=== PATIENT | male | born 1955 | race Caucasian/White ===

== ENCOUNTER 2019-02-27 10:45 | Inpatient (IN) | payer MEDICAID, MEDICARE ==
[~2019-02-27] VITALS: Ht 172.7 cm; Wt 55.8 kg
[~2019-02-27 10:45] MED LIST: ACET-2154 PO; ALBU18HF2 INH; AMLO10TA4 PO; ASCO500C16 PO; ASPI81TA31 PO; ATOR20TA PO; BLOO-360 IN; CARV6.25 PO; CHOL50004 PO; CLON0.1T14 PO; CYAN10009 PO; DARB25VI SQ; DEXT1CAP3 PO; DOCU-141 PO; FAMO-132 PO; FENO145T PO; FLUT1DIS28 INH; FOLI1TAB16 PO; GLIP5TAB3 PO; HYDR-4384 PO; HYDR25TA86 PO; INSU100V7 SQ; IPRA3AMP23 IH; MULT1TAB11 PO; NEBI10TA2 PO; OMEG1000 PO; TIOT18CA3 INH; ZINC220C8 PO; [UNRECOGNIZED DRUG - CODE] PO
[2019-02-27] MEDS ORDERED: IV NORMAL SALINE 500 ML BAG IV ONE (11:00)
[2019-02-27] MEDS ORDERED: CALC667C6 PO (11:09)
[2019-02-27] MEDS ORDERED: MIDO10TA PO (11:09)
[2019-02-27] MEDS ORDERED: FOLI0.4T2 PO (11:09)
[2019-02-27] MEDS ORDERED: NEOM1PAC2 TP (11:09)
[2019-02-27] MEDS ORDERED: CLON0.1T PO (11:09)
[2019-02-27] MEDS ORDERED: DOCU100C36 PO (11:09)
[2019-02-27] MEDS ORDERED: BENZ1TAB7 PO (11:09)
[2019-02-27] MEDS ORDERED: VIT1TABL46 PO (11:09)
[2019-02-27] MEDS ORDERED: LACT1CAP61 PO (11:09)
[2019-02-27] MEDS ORDERED: DIVA125C2 PO (11:09)
[2019-02-27] MEDS ORDERED: CLON0.5T12 PO (11:09)
[2019-02-27] MEDS ORDERED: TUBE1VIA ID (11:09)
[2019-02-27] MEDS ORDERED: VALB40CA PO (11:09)
[2019-02-27 11:12] LABS: BASOPHILS # (AUTO) 0.1 K/uL (0.0-8.0); BASOPHILS % (AUTO) 1.3 % (0.0-2.0); EOSINOPHILS # (AUTO) 0.2 K/uL (0.0-0.7); EOSINOPHILS % (AUTO) 2.7 % (0.0-7.0); HEMOGLOBIN 10.9 g/dL (12.5-16.3); LYMPHOCYTES # (AUTO) 1.6 K/uL (20.0-40.0); LYMPHOCYTES % (AUTO) 23.8 % (20.5-51.5); MEAN CORPUSCULAR HGB CONC 33 g/dL (32.5-36.3); MEAN CORPUSCULAR VOLUME 97.2 fL (73.0-96.2); MONOCYTES # (AUTO) 0.3 K/uL (2.0-10.0); MONOCYTES % (AUTO) 4.3 % (0.0-11.0); NEUTROPHILS # (AUTO) 4.5 K/uL (1.8-8.9); NEUTROPHILS % (AUTO) 67.9 % (38.5-71.5); PLATELET COUNT (AUTO) 246 K/uL (152-348); WHITE BLOOD COUNT (AUTO) 6.7 K/uL (3.6-10.2)
[2019-02-27 11:22] LABS: CREATININE 3.8 mg/dL (0.6-1.3); POTASSIUM 4.5 mmol/L (3.5-5.1)
[2019-02-27 11:38] LABS: BILIRUBIN,DIRECT 0.1 mg/dL (0.0-0.2); BILIRUBIN,TOTAL 0.2 mg/dL (0.2-1.0); TOTAL PROTEIN, SERUM 6.3 g/dL (6.4-8.2)
--- NOTE | 2019-02-27 12:18 | NUR ---
Patient is resting comfortably on gurney while actively moving both legs & left arm, respiration:easy, for transfer to 3rd floor telemetry floor 316 as soon as possible.
--- NOTE | 2019-02-27 12:50 | NUR ---
RECEIVED PATIENT FROM ER VIA [facility], WITH DIAGNOSIS OF RENAL FAILURE, PATIENT ALERT AND ORIENTED TO NAME, PATIENT IS CONFUSED. PATIENT HAS RIGHT SIDE HEMIPARESIS, RIGHT CONTRACTURES, A DIALYSIS PATIENT WITH CENTRAL LINE ON THE LEFT CHEST. IV ON THE LEFT FOREARM. MD AWARE OF PATIENT . BED IN LOW POSITION , SIDE RAILS UP WITH BED ALARM. WILL CONTINUE TREATMENT AND WILL CONTINUE TO MONITOR.
[2019-02-27 13:00] VITALS: BP 116/66
[2019-02-27 15:30] VITALS: BP 116/59
[2019-02-27] MEDS ORDERED: ONDANSETRON 4 MG/2 ML VIAL IV PRN (16:45)
[2019-02-27] MEDS ORDERED: CLONIDINE HCL 0.1 MG TABLET PO PRN (16:45)
[2019-02-27] MEDS ORDERED: ALBUTEROL SULFATE 1.25 MG/3 ML NEBU NEB PRN (16:45)
[2019-02-27] MEDS ORDERED: Medication Not On Formulary EA (Vit B Cmplx 3/Fa/Vit C/Biotin (Rena-Vite Rx Tablet) 1 EA PO SCH (17:00)
[2019-02-27] MEDS: DOCUSATE SODIUM 100 MG CAPSULE PO SCH (17:30)
[2019-02-27] MEDS: CALCIUM ACETATE 667 MG CAPSULE PO SCH (17:30)
[2019-02-27] MEDS: BENZTROPINE MESYLATE 1 MG TABLET PO SCH (17:30)
[2019-02-27] MEDS: DIVALPROEX SPRINKLE 125 MG CAP.SPRINK PO SCH (17:30)
[2019-02-27] MEDS: CLONAZEPAM 0.5 MG TABLET PO SCH (17:32)
--- NOTE | 2019-02-27 18:38 | NUR ---
PATIENT IN BED AWAKE AND ALERT, NO SOB NOTED AT THIS TIME, NO C/O PAIN AT THIS TIME, PROVIDE SAFETY AND COMFORT AT ALL TIMES. ECHOCARDIOGRAM DONE, WILL CONTINUE TREATMENT PLAN.
[2019-02-27] MEDS ORDERED: Z GUARD REMEDY PASTE 57 GM TUBE TOP PRN (18:45)
--- NOTE | 2019-02-27 19:20 | NUR ---
RECEIVED PT COMFORTABLY ON BED. PT SHOWS NO SIGNS OF ACUTE DISTRESS. PT IV INTACT. SAFETY AND COMFORT PROVIDED. WILL CONTINUE TO MONITOR.
[2019-02-27 19:27] VITALS: BP 137/78
[2019-02-27] MEDS: ACIDOPHILUS/BULGARICUS CHEW TAB PO SCH (20:48)
[2019-02-27] MEDS: HYDROCODONE/APAP 5-325MG TABLET PO PRN (20:48)
[2019-02-27] MEDS: Z GUARD REMEDY PASTE 57 GM TUBE TOP SCH (20:51)
[2019-02-27] MEDS ORDERED: Medication Not On Formulary EA (Valbenazine Tosylate (Ingrezza) 40 MG) PO SCH (21:00)
[2019-02-27 23:45] VITALS: BP 123/67
[2019-02-28] MEDS: CLONAZEPAM 0.5 MG TABLET PO SCH ×3 (00:45→17:26)
[2019-02-28 03:21] VITALS: BP 111/65
[2019-02-28 03:51] LABS: *BILIRUBIN,URIN NEGATIVE (NEGATIVE); *BLOOD, URINE 2+ (NEGATIVE); *CLARITY,URINE CLOUDY (CLEAR); *COLOR,URINE YELLOW (YELLOW); *KETONES,URINE NEGATIVE (NEGATIVE); *UROBILINOGEN,URINE 0.2 E.U./dl (NORMAL); LEUKOCYTE ESTERASE ,URINE 1+ (NEGATIVE); NITRITE, URINE NEGATIVE (NEGATIVE); UGLUCOSE NEGATIVE (NEGATIVE)
[2019-02-28 04:31] LABS: BACTERIA,URINE MANY /HPF (NONE SEEN); SQUAMOUS EPITHELIAL CELL,UR MODERATE /HPF (NONE SEEN)
[2019-02-28 05:58] LABS: BASOPHILS % (AUTO) 0.8 % (0.0-2.0); EOSINOPHILS # (AUTO) 0.2 K/uL (0.0-0.7); EOSINOPHILS % (AUTO) 3.9 % (0.0-7.0); HEMATOCRIT 31.3 % (36.7-47.1); HEMOGLOBIN 10.4 g/dL (12.5-16.3); LYMPHOCYTES # (AUTO) 1.6 K/uL (20.0-40.0); LYMPHOCYTES % (AUTO) 27.6 % (20.5-51.5); MEAN CORPUSCULAR HEMOGLOBIN 32.2 uug (23.8-33.4); MEAN CORPUSCULAR HGB CONC 33 g/dL (32.5-36.3); MEAN CORPUSCULAR VOLUME 97.4 fL (73.0-96.2); MONOCYTES # (AUTO) 0.3 K/uL (2.0-10.0); MONOCYTES % (AUTO) 5.1 % (0.0-11.0); NEUTROPHILS # (AUTO) 3.7 K/uL (1.8-8.9); NEUTROPHILS % (AUTO) 62.6 % (38.5-71.5); PLATELET COUNT (AUTO) 198 K/uL (152-348); RED BLOOD CELL COUNT(AUTO) 3.22 MIL/uL (4.06-5.63); WHITE BLOOD COUNT (AUTO) 5.9 K/uL (3.6-10.2)
[2019-02-28 06:13] LABS: BILIRUBIN,TOTAL 0.1 mg/dL (0.2-1.0); CREATININE 2.5 mg/dL (0.6-1.3); PHOSPHOROUS 3.8 mg/dL (2.5-4.9); TOTAL PROTEIN, SERUM 5.7 g/dL (6.4-8.2)
[2019-02-28 06:19] LABS: THYROID STIMULATING HORMONE 2.464 mIU/mL (0.358-3.740)
[2019-02-28] MEDS: PANTOPRAZOLE SODIUM 40 MG TABLET.DR PO SCH (06:21)
--- NOTE | 2019-02-28 07:00 | NUR ---
AT 0050 NOTIFY JEWEL SETTER REGARDING PT TEMPERATURE OF 95.3"F. MARTINEZ VILCHIS ORDERED PANCULTURE ( BLOOD CULTURE, URINE CULTURE, RESPIRATORY CULTURE AND URINALISYS)CHARGE NURSE AWARE . PUT BEAR HUGGER FOR THE PT. RECENT TEMPERATURE WAS 97.9 'F. PT SLEPT INTERMITTENTLY. PT SHOWS NO SIGNS OF ACUTE DISTRESS. PRESCRIBED MEDICATION GIVEN AND PT TOLERATED IT WELL. SAFETY AND COMFORT PROVIDED. WILL ENDORSE ACCORDINGLY TO INCOMING NURSE FOR CONTINUITY OF CARE.
--- NOTE | 2019-02-28 07:30 | NUR ---
RECIEVED PT LYING IN BED, THRUSHING AND SOMEWHAT RESTLESS. APHASIC, FACE IS EVEN AND SYMMETRICAL, FOLLOWS SIMPOLE COMMANDS. PT IS RIGHT SIDED WEAKNESS AND UPPER ARM IS CONTRACTED. HR -SB. IV HL ON THE LEFT FA. PT HAS A BKA. STUMP IS INTACT.
[2019-02-28] MEDS ORDERED: FOLIC ACID 0.4 MG TABLET PO SCH (09:00)
[2019-02-28 09:06] LABS: HEPATITIS B SURFACE AB Reactive (.); HEPATITIS B SURFACE AG Negative (Negative)
--- NOTE | 2019-02-28 09:30 | NUR ---
SEEN AND EXAMINED BY Orion MORALES WITH NEW ORDER FOR HD IN THE MORNING.
[2019-02-28] MEDS: CHOLECALCIFEROL 1,000 UNIT TABLET PO SCH (10:07)
[2019-02-28] MEDS: DOCUSATE SODIUM 100 MG CAPSULE PO SCH ×2 (10:08→17:26)
[2019-02-28] MEDS: CALCIUM ACETATE 667 MG CAPSULE PO SCH ×2 (10:08→17:26)
[2019-02-28] MEDS: DIVALPROEX SPRINKLE 125 MG CAP.SPRINK PO SCH ×3 (10:08→17:26)
[2019-02-28] MEDS: ACIDOPHILUS/BULGARICUS CHEW TAB PO SCH ×2 (10:08→20:59)
[2019-02-28] MEDS: BENZTROPINE MESYLATE 1 MG TABLET PO SCH ×3 (10:09→17:29)
[2019-02-28] MEDS: FOLIC ACID 1 MG TABLET PO SCH (10:09)
[2019-02-28] MEDS: Z GUARD REMEDY PASTE 57 GM TUBE TOP SCH ×2 (11:02→21:03)
--- NOTE | 2019-02-28 11:30 | NUR ---
REPOSITION TO SIDES AND ALL SIDERAILS ARE PADDED FOR SAFETY. PT IS EATING AND SWALLOWING WELL WITH MAX ASSIST.
[2019-02-28 11:56] VITALS: BP 101/49
[2019-02-28] MEDS: CEFTRIAXONE 1 G in IV DEXTROSE 5% 50 ML IV SCH (12:44)
[2019-02-28] MEDS: FOLIC ACID/VITAMIN B COMP W-C TABLET PO SCH (12:48)
--- NOTE | 2019-02-28 15:00 | NUR ---
SEEN AND EXAMINED BY WELDER GAS TUNGSTEN ARC. PT NEEDS AN ADDITIONAL PHOTO ON HIS RIGHT SIDE OF HIS LEG AND FOOT AND ALSO ON HIS LEFT FA. ENDORSED IT TO THE NEXT SHIFT NURSE TO FOL;LOW IT UP.
--- NOTE | 2019-02-28 15:08 | NUR ---
WOUND CARE CONSULT: PT PRESENTS WITH SACRAL SCARRING, RT ARM SKIN TEAR AND CALLUSES TO RT LATERAL FOOT WITH DRY ABRASIONS TO RT LOWER LEG, PRESENT ON ADMISSION. PT COMBATIVE AT TIMES. PT IS INCONTINENT. LEFT BELOW KNEE AMPUTATION STUMP NOTED. PT TENDS TO KICK HIS LEGS AT TIMES. RECOMMENDATIONS MADE FOR WOUND CARE AND SKIN PROTECTION. DISCUSSED WITH NURSING STAFF. WILL SEE PRN. HILLMAN IN AGREEMENT WITH PLAN OF CARE. Addendum: 02/28/19 at 1510 by KAYLEEN JENKINS RN Amended: Links added.
[2019-02-28 15:50] VITALS: BP 125/70
--- NOTE | 2019-02-28 19:20 | NUR ---
Received pt asleep lying on bed, no s/sx of acute distress. On room air, breathing even and unlabored. Left BKA noted, Rt. upper arm flaccid. Will continue to monitor.
[2019-02-28 20:12] VITALS: BP 104/71
[2019-03-01] MEDS: CLONAZEPAM 0.5 MG TABLET PO SCH ×3 (00:09→16:37)
[2019-03-01 00:26] VITALS: BP 128/69
[2019-03-01 05:29] VITALS: BP 114/67
[2019-03-01] MEDS: PANTOPRAZOLE SODIUM 40 MG TABLET.DR PO SCH (06:01)
--- NOTE | 2019-03-01 07:30 | NUR ---
RECIEVED PT VERY SOUND ASLEEP IN BED, WITH NO APPARENT DISTRESS NOTED. COLOR IS GOOD. ALL SIDERAILS ARE PADDED FOR SAFETY. TELE IS SB, SR, NO ECTOPY.VSS.
--- NOTE | 2019-03-01 07:31 | NUR ---
Pt now resting comfortably in bed, no SOB and no s/sx of distress. DVT pumps in room, offered to apply in right leg, pt refused overnight. Dressing to right elbow skin tear changed, covered with Kerlix clean dry and intact. Repositioned for comfort, kept clean and dry. Consent to HD in chart, scheduled for today. Report given to incoming nurse for continuity of care.
--- NOTE | 2019-03-01 09:00 | NUR ---
PT ABLE TO EAT GOOD FOR BREAKFAST WITH MAX ASSIST. TOLERATING WELL.
[2019-03-01] MEDS: CHOLECALCIFEROL 1,000 UNIT TABLET PO SCH (09:27)
[2019-03-01] MEDS: DOCUSATE SODIUM 100 MG CAPSULE PO SCH ×2 (09:28→16:37)
[2019-03-01] MEDS: BENZTROPINE MESYLATE 1 MG TABLET PO SCH ×3 (09:28→16:37)
[2019-03-01] MEDS: CALCIUM ACETATE 667 MG CAPSULE PO SCH ×2 (09:29→16:36)
[2019-03-01] MEDS: FOLIC ACID 1 MG TABLET PO SCH (09:29)
[2019-03-01] MEDS: FOLIC ACID/VITAMIN B COMP W-C TABLET PO SCH (09:29)
[2019-03-01] MEDS: ACIDOPHILUS/BULGARICUS CHEW TAB PO SCH ×2 (09:29→22:05)
[2019-03-01] MEDS: DIVALPROEX SPRINKLE 125 MG CAP.SPRINK PO SCH ×3 (09:30→16:37)
--- NOTE | 2019-03-01 10:30 | NUR ---
DC TELEMETRY ORDERED.
[2019-03-01 11:49] VITALS: BP 125/69
[2019-03-01] MEDS: CEFTRIAXONE 1 G in IV DEXTROSE 5% 50 ML IV SCH (12:03)
[2019-03-01] MEDS: Z GUARD REMEDY PASTE 57 GM TUBE TOP SCH ×2 (13:59→22:22)
[2019-03-01 15:58] VITALS: BP 120/78
--- NOTE | 2019-03-01 16:00 | NUR ---
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 TURNING PT FREQUENTLY. HOB UP WITH FEEDING.
--- NOTE | 2019-03-01 18:00 | NUR ---
STILL AWAITING FOR THE HD AT THIS TIME.
[2019-03-01] MEDS: MUPIROCIN 2% OINT 22 GM TUBE NS SCH ×3 (19:00→22:05)
--- NOTE | 2019-03-01 19:30 | NUR ---
patient received lying in bed. a/ox1 and confused. safety and comfort measures provided. bed in lowest position and side rails padded. will continue to care for patient.
[2019-03-01 20:24] VITALS: BP 101/68
--- NOTE | 2019-03-01 22:00 | NUR ---
patient's meds given late due to dialysis nurse arriving at 1999 and dialyzing patient. dialysis nurse, Winifred Cuello confirmed with me that the medications prescribed for tonight were okay to give to patient. patient refused Bactroban to the nares for MRSA. I educated the patient that it was medically necessary for him to get the ointment in his nares to treat him for the MRSA. He stated, "no" and pushed my hands away a few times.
[2019-03-01] MEDS: HYDROCODONE/APAP 5-325MG TABLET PO PRN (22:04)
--- NOTE | 2019-03-02 | NUR ---
provided wound care for patient. applied mepilex and offloaded on sacral scar. right arm wound cleansed with NS, applied xerofoam, mepilex and kerlix.
[2019-03-02] MEDS: CLONAZEPAM 0.5 MG TABLET PO SCH ×4 (00:06→23:55)
[2019-03-02] MEDS: ACETAMINOPHEN 325 MG TABLET PO PRN ×2 (04:19→20:27)
[2019-03-02 05:24] VITALS: BP 137/83
--- NOTE | 2019-03-02 05:58 | NUR ---
patient sleeping intermittently. a/o x 1 and confused. safety and comfort measures provided. all medications administered and tolerated well. will endorse care to morning nurse.
[2019-03-02 06:10] LABS: BASOPHILS # (AUTO) 0.1 K/uL (0.0-8.0); BASOPHILS % (AUTO) 0.9 % (0.0-2.0); EOSINOPHILS # (AUTO) 0.2 K/uL (0.0-0.7); EOSINOPHILS % (AUTO) 4.2 % (0.0-7.0); HEMATOCRIT 31.5 % (36.7-47.1); HEMOGLOBIN 10.4 g/dL (12.5-16.3); LYMPHOCYTES # (AUTO) 1.5 K/uL (20.0-40.0); LYMPHOCYTES % (AUTO) 25.7 % (20.5-51.5); MEAN CORPUSCULAR HEMOGLOBIN 32.2 uug (23.8-33.4); MEAN CORPUSCULAR HGB CONC 33 g/dL (32.5-36.3); MEAN CORPUSCULAR VOLUME 97.7 fL (73.0-96.2); MONOCYTES # (AUTO) 0.3 K/uL (2.0-10.0); MONOCYTES % (AUTO) 4.8 % (0.0-11.0); NEUTROPHILS # (AUTO) 3.8 K/uL (1.8-8.9); NEUTROPHILS % (AUTO) 64.4 % (38.5-71.5); PLATELET COUNT (AUTO) 196 K/uL (152-348); RED BLOOD CELL COUNT(AUTO) 3.22 MIL/uL (4.06-5.63); WHITE BLOOD COUNT (AUTO) 5.9 K/uL (3.6-10.2)
[2019-03-02] MEDS: HYDROCODONE/APAP 5-325MG TABLET PO PRN ×2 (06:10→23:55)
[2019-03-02] MEDS: PANTOPRAZOLE SODIUM 40 MG TABLET.DR PO SCH (06:10)
[2019-03-02 07:03] LABS: BILIRUBIN,TOTAL 0.2 mg/dL (0.2-1.0); CREATININE 2.1 mg/dL (0.6-1.3); PHOSPHOROUS 2.8 mg/dL (2.5-4.9); POTASSIUM 4.4 mmol/L (3.5-5.1); TOTAL PROTEIN, SERUM 6.3 g/dL (6.4-8.2)
--- NOTE | 2019-03-02 07:10 | NUR ---
RECEIVED PATIENT IN BED ALERT AND ORIENTED X1 WITH HOB ELEVATED WITH BED IN LOW POSITION , 2 SIDE RAILS UP WITH BED ALARM ON. NO SOB NOTED AND NO C/O PAIN , WILL CONTINUE TO MONITOR AND PROVIDE SAFETY AT ALL TIMES, CALL LIGHT WITHIN REACHED. CONTINUE TREATMENT PLAN.
[2019-03-02] MEDS: ACIDOPHILUS/BULGARICUS CHEW TAB PO SCH ×2 (08:18→20:27)
[2019-03-02] MEDS: DOCUSATE SODIUM 100 MG CAPSULE PO SCH ×2 (08:18→17:17)
[2019-03-02] MEDS: CALCIUM ACETATE 667 MG CAPSULE PO SCH ×2 (08:18→17:17)
[2019-03-02] MEDS: MUPIROCIN 2% OINT 22 GM TUBE NS SCH ×3 (08:19→20:35)
[2019-03-02] MEDS: BENZTROPINE MESYLATE 1 MG TABLET PO SCH ×3 (08:19→17:17)
[2019-03-02] MEDS: DIVALPROEX SPRINKLE 125 MG CAP.SPRINK PO SCH ×3 (08:19→17:17)
[2019-03-02] MEDS: FOLIC ACID 1 MG TABLET PO SCH (08:19)
[2019-03-02] MEDS: CHOLECALCIFEROL 1,000 UNIT TABLET PO SCH (08:19)
[2019-03-02] MEDS: Z GUARD REMEDY PASTE 57 GM TUBE TOP SCH ×2 (09:00→20:28)
[2019-03-02] MEDS: FOLIC ACID/VITAMIN B COMP W-C TABLET PO SCH (09:19)
[2019-03-02] MEDS: CEFTRIAXONE 1 G in IV DEXTROSE 5% 50 ML IV SCH (11:06)
[2019-03-02 11:08] VITALS: BP 129/72
[2019-03-02 15:10] VITALS: BP 135/78
--- NOTE | 2019-03-02 18:36 | NUR ---
patient in bed with HOB elevated , alert and oriented, no SOB noted at this time, no c/o pain noted at this time, bed in low position , with 2 side rails up . will continue to monitor and safety provided at all times.
--- NOTE | 2019-03-02 19:30 | NUR ---
patient received lying in bed and confused. safety and comfort measures provided. HOB elevated. will continue care.
[2019-03-02 20:02] VITALS: BP 137/89
--- NOTE | 2019-03-02 23:55 | NUR ---
patient administered norco using FLACC scale to provide comfort measure and pain relief. tolerated well.
[2019-03-03 04:51] VITALS: BP 135/88
[2019-03-03] MEDS: PANTOPRAZOLE SODIUM 40 MG TABLET.DR PO SCH (06:27)
[2019-03-03 06:39] LABS: BASOPHILS # (AUTO) 0.1 K/uL (0.0-8.0); BASOPHILS % (AUTO) 0.9 % (0.0-2.0); EOSINOPHILS # (AUTO) 0.3 K/uL (0.0-0.7); EOSINOPHILS % (AUTO) 4.6 % (0.0-7.0); HEMATOCRIT 31.6 % (36.7-47.1); HEMOGLOBIN 10.4 g/dL (12.5-16.3); LYMPHOCYTES # (AUTO) 1.9 K/uL (20.0-40.0); LYMPHOCYTES % (AUTO) 32.8 % (20.5-51.5); MEAN CORPUSCULAR HEMOGLOBIN 32.2 uug (23.8-33.4); MEAN CORPUSCULAR HGB CONC 33 g/dL (32.5-36.3); MEAN CORPUSCULAR VOLUME 97.4 fL (73.0-96.2); MONOCYTES # (AUTO) 0.2 K/uL (2.0-10.0); NEUTROPHILS # (AUTO) 3.3 K/uL (1.8-8.9); NEUTROPHILS % (AUTO) 57.7 % (38.5-71.5); PLATELET COUNT (AUTO) 199 K/uL (152-348); RED BLOOD CELL COUNT(AUTO) 3.24 MIL/uL (4.06-5.63); WHITE BLOOD COUNT (AUTO) 5.7 K/uL (3.6-10.2)
[2019-03-03 06:56] LABS: BILIRUBIN,TOTAL 0.2 mg/dL (0.2-1.0); CREATININE 2.3 mg/dL (0.6-1.3); MAGNESIUM 2.1 mg/dL (1.8-2.4); PHOSPHOROUS 3.8 mg/dL (2.5-4.9); TOTAL PROTEIN, SERUM 6.3 g/dL (6.4-8.2)
[2019-03-03] MEDS: CHOLECALCIFEROL 1,000 UNIT TABLET PO SCH (08:29)
[2019-03-03] MEDS: DOCUSATE SODIUM 100 MG CAPSULE PO SCH ×2 (08:29→17:29)
[2019-03-03] MEDS: CLONAZEPAM 0.5 MG TABLET PO SCH ×2 (08:29→17:29)
[2019-03-03] MEDS: FOLIC ACID 1 MG TABLET PO SCH (08:30)
[2019-03-03] MEDS: BENZTROPINE MESYLATE 1 MG TABLET PO SCH ×3 (08:30→17:29)
[2019-03-03] MEDS: CALCIUM ACETATE 667 MG CAPSULE PO SCH ×2 (08:30→17:29)
[2019-03-03] MEDS: DIVALPROEX SPRINKLE 125 MG CAP.SPRINK PO SCH ×3 (08:30→17:29)
[2019-03-03] MEDS: MUPIROCIN 2% OINT 22 GM TUBE NS SCH (08:30)
[2019-03-03] MEDS: ACIDOPHILUS/BULGARICUS CHEW TAB PO SCH (08:30)
[2019-03-03] MEDS: FOLIC ACID/VITAMIN B COMP W-C TABLET PO SCH (08:30)
[2019-03-03] MEDS: Z GUARD REMEDY PASTE 57 GM TUBE TOP SCH (09:58)
[2019-03-03 11:14] VITALS: BP 157/83
[2019-03-03] MEDS: CEFTRIAXONE 1 G in IV DEXTROSE 5% 50 ML IV SCH (11:39)
[2019-03-03] MEDS ORDERED: ACET325T53 PO (12:16)
[2019-03-03] MEDS ORDERED: CLON0.5T12 PO (12:16)
[2019-03-03] MEDS ORDERED: PANT40TA2 PO (12:16)
[2019-03-03] MEDS ORDERED: ACID1TAB4 PO (12:16)
[2019-03-03] MEDS ORDERED: MENT71OI TOP (12:16)
[2019-03-03] MEDS ORDERED: CEFT1VIA15 IV (12:23)
[2019-03-03 15:27] VITALS: BP 140/68
== END 2019-03-03 17:50 | DRG 689 ==
LOC: ER 10:45 → TELE3 12:44 → MEDSURG3 03-01 11:23
PROVIDERS: ADMIT Internal Medicine; ATTEND Internal Medicine
PROC: 5A1D70Z Performance of Urinary Filtration, Intermittent, Less than 6 Hours Per Day (ICD-10-PCS; principal; 2019-02-27)
DX: N39.0 Urinary tract infection, site not specified (principal); G93.41 Metabolic encephalopathy; E43 Unspecified severe protein-calorie malnutrition; N18.6 End stage renal disease; I12.0 Hypertensive chronic kidney disease with stage 5 chronic kidney disease or end stage renal disease; I69.351 Hemiplegia and hemiparesis following cerebral infarction affecting right dominant side; Z68.1 Body mass index [BMI] 19.9 or less, adult; E11.22 Type 2 diabetes mellitus with diabetic chronic kidney disease; Z99.2 Dependence on renal dialysis; Z91.15 Patient's noncompliance with renal dialysis; Z79.4 Long term (current) use of insulin; Z22.322 Carrier or suspected carrier of Methicillin resistant Staphylococcus aureus; E11.42 Type 2 diabetes mellitus with diabetic polyneuropathy; Z89.512 Acquired absence of left leg below knee; E78.5 Hyperlipidemia, unspecified; Z88.2 Allergy status to sulfonamides; R29.723 NIHSS score 23; R62.7 Adult failure to thrive; J45.909 Unspecified asthma, uncomplicated; Z79.51 Long term (current) use of inhaled steroids; R13.10 Dysphagia, unspecified; E11.51 Type 2 diabetes mellitus with diabetic peripheral angiopathy without gangrene; I25.10 Atherosclerotic heart disease of native coronary artery without angina pectoris; D53.9 Nutritional anemia, unspecified; F03.90 Unspecified dementia, unspecified severity, without behavioral disturbance, psychotic disturbance, mood disturbance, and anxiety; M19.90 Unspecified osteoarthritis, unspecified site; Z74.01 Bed confinement status
CPT/HCPCS: 36415; 70030-TC; 71045; 80164; 83550; 83605; 83690; 83735; 84100; 84443; 85025; 85730; 86704; 86706; 87040; 87086; 87340; 90937; 93005; 93307; A4663; C1758; G0378; J0696; J7040; J7060

== ENCOUNTER 2019-06-26 13:00 | Inpatient (IN) | payer MEDICARE, MEDICAID ==
[~2019-06-26] VITALS: Ht 172.7 cm; Wt 56.7 kg
[~2019-06-26 13:00] MED LIST changes: -ACET-2154 PO; +ACET325T53 PO; +ACID1TAB4 PO; -ALBU18HF2 INH; -AMLO10TA4 PO; -ASCO500C16 PO; -ASPI81TA31 PO; -ATOR20TA PO; +BENZ1TAB7 PO; -BLOO-360 IN; +CALC667C6 PO; -CARV6.25 PO; +CEFT1VIA15 IV; +CLON0.1T PO; -CLON0.1T14 PO; +CLON0.5T12 PO; -CYAN10009 PO; -DARB25VI SQ; -DEXT1CAP3 PO; +DIVA125C2 PO; -DOCU-141 PO; +DOCU100C36 PO; -FAMO-132 PO; -FENO145T PO; -FLUT1DIS28 INH; +FOLI0.4T2 PO; -FOLI1TAB16 PO; -GLIP5TAB3 PO; -HYDR-4384 PO; -HYDR25TA86 PO; -INSU100V7 SQ; -IPRA3AMP23 IH; +MENT71OI TOP; -MULT1TAB11 PO; -NEBI10TA2 PO; -OMEG1000 PO; +PANT40TA2 PO; -TIOT18CA3 INH; +VALB40CA PO; +VIT1TABL46 PO; -ZINC220C8 PO; -[UNRECOGNIZED DRUG - CODE] PO
[2019-06-26 13:52] LABS: BASOPHILS % (AUTO) 0.8 % (0.0-2.0); EOSINOPHILS # (AUTO) 0.1 K/uL (0.0-0.7); HEMATOCRIT 32.8 % (36.7-47.1); HEMOGLOBIN 10.9 g/dL (12.5-16.3); LYMPHOCYTES # (AUTO) 1.2 K/uL (20.0-40.0); LYMPHOCYTES % (AUTO) 25.3 % (20.5-51.5); MEAN CORPUSCULAR HEMOGLOBIN 33.2 uug (23.8-33.4); MEAN CORPUSCULAR HGB CONC 33 g/dL (32.5-36.3); MEAN CORPUSCULAR VOLUME 99.7 fL (73.0-96.2); MONOCYTES # (AUTO) 0.2 K/uL (2.0-10.0); MONOCYTES % (AUTO) 5.4 % (0.0-11.0); NEUTROPHILS % (AUTO) 65.5 % (38.5-71.5); PLATELET COUNT (AUTO) 190 K/uL (152-348); RED BLOOD CELL COUNT(AUTO) 3.29 MIL/uL (4.06-5.63); WHITE BLOOD COUNT (AUTO) 4.6 K/uL (3.6-10.2)
[2019-06-26 13:59] LABS: CREATININE 2.1 mg/dL (0.6-1.3); POTASSIUM 4.5 mmol/L (3.5-5.1)
[2019-06-26] MEDS ORDERED: VANCOMYCIN IV 1,000 MG in IV DEXTROSE 5% 250 ML IV ONE (14:00)
[2019-06-26] MEDS ORDERED: ACET-2154 PO (14:13)
[2019-06-26] MEDS ORDERED: POVI30SO TOP (14:13)
[2019-06-26] MEDS ORDERED: CEPH-570 PO (14:13)
[2019-06-26] MEDS ORDERED: COLL30OI TOP (14:13)
[2019-06-26] MEDS ORDERED: ASCO500C18 PO (14:13)
[2019-06-26] MEDS ORDERED: OMEP20TA20 PO (14:13)
[2019-06-26] MEDS ORDERED: VANCOMYCIN IV 200 ML ONE (14:21)
[2019-06-26] MEDS ORDERED: ONDANSETRON 4 MG/2 ML VIAL IV PRN (16:00)
[2019-06-26] MEDS ORDERED: HYDROCODONE/APAP 5-325MG TABLET PO PRN (16:00)
[2019-06-26] MEDS ORDERED: ACETAMINOPHEN 325 MG TABLET PO PRN (16:00)
[2019-06-26] MEDS ORDERED: Z GUARD REMEDY PASTE 57 GM TUBE TOP PRN (16:00)
[2019-06-26] MEDS ORDERED: MORPHINE SULFATE 2 MG/1 ML DISP.SYRIN IV PRN (16:00)
[2019-06-26] MEDS ORDERED: DEXTROSE 50% 50 ML DISP.SYRIN IV PRN (16:30)
[2019-06-26] MEDS ORDERED: INSULIN REGULAR, HUMAN 300 UNIT/3 ML VIAL SQ PRN (16:30)
[2019-06-26] MEDS ORDERED: INSULIN REGULAR, HUMAN 300 UNITS/3 ML VIAL SQ PRN (16:30)
[2019-06-26 16:33] VITALS: BP 146/66
[2019-06-26] MEDS: BENZTROPINE MESYLATE 1 MG TABLET PO SCH (17:39)
[2019-06-26] MEDS: DIVALPROEX SPRINKLE 125 MG CAP.SPRINK PO SCH (17:39)
[2019-06-26] MEDS: BLOOD SUGAR DIAGNOSTIC 1 EACH STRIP VI SCH ×2 (17:39→21:59)
[2019-06-26] MEDS: DOCUSATE SODIUM 100 MG CAPSULE PO SCH (17:40)
[2019-06-26] MEDS ORDERED: Medication Not On Formulary EA (Valbenazine Tosylate (Ingrezza) 40 MG) PO SCH (21:00)
[2019-06-26] MEDS ORDERED: DOCUSATE SODIUM 100 MG CAPSULE PO SCH (21:00)
[2019-06-26] MEDS: CLONAZEPAM 0.5 MG TABLET PO SCH (21:18)
[2019-06-26 22:48] VITALS: BP 144/72
[2019-06-27] VITALS: BP 158/82
[2019-06-27 04:10] VITALS: BP 134/76
[2019-06-27] MEDS: CLONAZEPAM 0.5 MG TABLET PO SCH ×3 (05:34→21:24)
[2019-06-27] MEDS: PANTOPRAZOLE SODIUM 40 MG TABLET.DR PO SCH (06:16)
[2019-06-27 06:55] LABS: BASOPHILS % (AUTO) 0.9 % (0.0-2.0); EOSINOPHILS # (AUTO) 0.2 K/uL (0.0-0.7); EOSINOPHILS % (AUTO) 4.3 % (0.0-7.0); HEMATOCRIT 33.4 % (36.7-47.1); HEMOGLOBIN 11.3 g/dL (12.5-16.3); LYMPHOCYTES % (AUTO) 27.5 % (20.5-51.5); MEAN CORPUSCULAR HEMOGLOBIN 33.3 uug (23.8-33.4); MEAN CORPUSCULAR HGB CONC 34 g/dL (32.5-36.3); MONOCYTES # (AUTO) 0.3 K/uL (2.0-10.0); MONOCYTES % (AUTO) 7.1 % (0.0-11.0); NEUTROPHILS # (AUTO) 2.2 K/uL (1.8-8.9); NEUTROPHILS % (AUTO) 60.2 % (38.5-71.5); PLATELET COUNT (AUTO) 202 K/uL (152-348); RED BLOOD CELL COUNT(AUTO) 3.38 MIL/uL (4.06-5.63); WHITE BLOOD COUNT (AUTO) 3.6 K/uL (3.6-10.2)
[2019-06-27] MEDS: BLOOD SUGAR DIAGNOSTIC 1 EACH STRIP VI SCH ×4 (06:55→21:35)
[2019-06-27 07:12] LABS: THYROID STIMULATING HORMONE 4.61 mIU/mL (0.358-3.740)
[2019-06-27 07:19] LABS: BILIRUBIN,DIRECT 0.1 mg/dL (0.0-0.2); BILIRUBIN,TOTAL 0.1 mg/dL (0.2-1.0); CREATININE 2.3 mg/dL (0.6-1.3); MAGNESIUM 1.9 mg/dL (1.8-2.4); POTASSIUM 4.2 mmol/L (3.5-5.1); TOTAL PROTEIN, SERUM 6.2 g/dL (6.4-8.2)
[2019-06-27] MEDS ORDERED: Medication Not On Formulary EA (Vit B Cmplx 3/Fa/Vit C/Biotin (Rena-Vite Rx Tablet) 1 EA PO SCH (09:00)
[2019-06-27] MEDS ORDERED: Medication Not On Formulary EA (Ascorbic Acid (Vitamin C) 500 MG) PO SCH (09:00)
[2019-06-27] MEDS ORDERED: FOLIC ACID 0.4 MG TABLET PO SCH (09:00)
[2019-06-27] MEDS: FOLIC ACID 1 MG TABLET PO SCH (09:05)
[2019-06-27] MEDS: DOCUSATE SODIUM 100 MG CAPSULE PO SCH ×2 (09:05→18:38)
[2019-06-27] MEDS: CHOLECALCIFEROL 1,000 UNIT TABLET PO SCH (09:08)
[2019-06-27] MEDS: BENZTROPINE MESYLATE 1 MG TABLET PO SCH ×3 (09:08→18:39)
[2019-06-27] MEDS: FOLIC ACID/VITAMIN B COMP W-C TABLET PO SCH (09:08)
[2019-06-27] MEDS: ASCORBIC ACID 500 MG TABLET PO SCH (09:08)
[2019-06-27] MEDS: DIVALPROEX SPRINKLE 125 MG CAP.SPRINK PO SCH ×3 (09:09→18:38)
[2019-06-27] MEDS: CALCIUM ACETATE 667 MG CAPSULE PO SCH ×2 (09:10→18:38)
[2019-06-27 11:28] VITALS: BP 128/74
[2019-06-27 11:49] VITALS: BP 111/71
[2019-06-27 15:50] VITALS: BP 118/71
[2019-06-27 20:00] VITALS: BP 121/54
[2019-06-28 00:01] VITALS: BP 94/46
[2019-06-28 04:00] VITALS: BP 145/75
[2019-06-28] MEDS: PANTOPRAZOLE SODIUM 40 MG TABLET.DR PO SCH (06:22)
[2019-06-28] MEDS: CLONAZEPAM 0.5 MG TABLET PO SCH ×3 (06:22→21:07)
[2019-06-28] MEDS: BLOOD SUGAR DIAGNOSTIC 1 EACH STRIP VI SCH ×4 (06:44→20:19)
[2019-06-28 06:50] LABS: BASOPHILS % (AUTO) 1.1 % (0.0-2.0); EOSINOPHILS # (AUTO) 0.1 K/uL (0.0-0.7); EOSINOPHILS % (AUTO) 3.5 % (0.0-7.0); HEMATOCRIT 31.4 % (36.7-47.1); HEMOGLOBIN 10.5 g/dL (12.5-16.3); LYMPHOCYTES # (AUTO) 1.2 K/uL (20.0-40.0); LYMPHOCYTES % (AUTO) 29.4 % (20.5-51.5); MEAN CORPUSCULAR HEMOGLOBIN 32.9 uug (23.8-33.4); MEAN CORPUSCULAR HGB CONC 34 g/dL (32.5-36.3); MEAN CORPUSCULAR VOLUME 98.1 fL (73.0-96.2); MONOCYTES # (AUTO) 0.3 K/uL (2.0-10.0); MONOCYTES % (AUTO) 7.5 % (0.0-11.0); NEUTROPHILS # (AUTO) 2.4 K/uL (1.8-8.9); NEUTROPHILS % (AUTO) 58.5 % (38.5-71.5); PLATELET COUNT (AUTO) 194 K/uL (152-348)
[2019-06-28 07:39] LABS: CREATININE 2.5 mg/dL (0.6-1.3); MAGNESIUM 1.9 mg/dL (1.8-2.4); PHOSPHOROUS 3.9 mg/dL (2.5-4.9)
[2019-06-28 08:05] VITALS: BP 130/24
[2019-06-28] MEDS: FOLIC ACID/VITAMIN B COMP W-C TABLET PO SCH (09:00)
[2019-06-28] MEDS: CALCIUM ACETATE 667 MG CAPSULE PO SCH ×2 (09:00→17:46)
[2019-06-28] MEDS: FOLIC ACID 1 MG TABLET PO SCH (09:02)
[2019-06-28] MEDS: CHOLECALCIFEROL 1,000 UNIT TABLET PO SCH (09:02)
[2019-06-28] MEDS: DOCUSATE SODIUM 100 MG CAPSULE PO SCH ×2 (09:03→17:00)
[2019-06-28] MEDS: ASCORBIC ACID 500 MG TABLET PO SCH (09:03)
[2019-06-28] MEDS: BENZTROPINE MESYLATE 1 MG TABLET PO SCH ×3 (09:03→17:00)
[2019-06-28] MEDS: DIVALPROEX SPRINKLE 125 MG CAP.SPRINK PO SCH ×3 (09:04→17:00)
[2019-06-28 12:03] VITALS: BP 158/76
[2019-06-28 16:45] VITALS: BP 154/71
[2019-06-28] MEDS ORDERED: VANCOMYCIN IV 1,000 MG in IV DEXTROSE 5% 250 ML IV ONE (17:30)
[2019-06-28 22:00] VITALS: BP 135/62
[2019-06-29 00:56] VITALS: BP 112/81
[2019-06-29 04:00] VITALS: BP 165/82
[2019-06-29] MEDS: CLONAZEPAM 0.5 MG TABLET PO SCH ×2 (05:58→13:07)
[2019-06-29] MEDS: PANTOPRAZOLE SODIUM 40 MG TABLET.DR PO SCH (06:13)
[2019-06-29 06:27] VITALS: BP 142/68
[2019-06-29] MEDS: BLOOD SUGAR DIAGNOSTIC 1 EACH STRIP VI SCH ×4 (06:31→16:25)
[2019-06-29 07:37] LABS: CREATININE 1.9 mg/dL (0.6-1.3); PHOSPHOROUS 3.6 mg/dL (2.5-4.9); POTASSIUM 5.2 mmol/L (3.5-5.1)
[2019-06-29 07:43] LABS: BASOPHILS % (AUTO) 0.9 % (0.0-2.0); EOSINOPHILS # (AUTO) 0.1 K/uL (0.0-0.7); EOSINOPHILS % (AUTO) 3.1 % (0.0-7.0); HEMATOCRIT 34.1 % (36.7-47.1); HEMOGLOBIN 11.2 g/dL (12.5-16.3); LYMPHOCYTES # (AUTO) 0.9 K/uL (20.0-40.0); LYMPHOCYTES % (AUTO) 20.3 % (20.5-51.5); MEAN CORPUSCULAR HEMOGLOBIN 32.8 uug (23.8-33.4); MEAN CORPUSCULAR HGB CONC 33 g/dL (32.5-36.3); MEAN CORPUSCULAR VOLUME 99.7 fL (73.0-96.2); MONOCYTES # (AUTO) 0.3 K/uL (2.0-10.0); MONOCYTES % (AUTO) 7.9 % (0.0-11.0); NEUTROPHILS # (AUTO) 2.9 K/uL (1.8-8.9); NEUTROPHILS % (AUTO) 67.8 % (38.5-71.5); PLATELET COUNT (AUTO) 190 K/uL (152-348); RED BLOOD CELL COUNT(AUTO) 3.42 MIL/uL (4.06-5.63); WHITE BLOOD COUNT (AUTO) 4.3 K/uL (3.6-10.2)
[2019-06-29] MEDS: CHOLECALCIFEROL 1,000 UNIT TABLET PO SCH (08:55)
[2019-06-29] MEDS: BENZTROPINE MESYLATE 1 MG TABLET PO SCH ×3 (08:55→16:25)
[2019-06-29] MEDS: DOCUSATE SODIUM 100 MG CAPSULE PO SCH ×2 (08:55→16:25)
[2019-06-29] MEDS: FOLIC ACID/VITAMIN B COMP W-C TABLET PO SCH (08:56)
[2019-06-29] MEDS: CALCIUM ACETATE 667 MG CAPSULE PO SCH ×2 (08:56→17:32)
[2019-06-29] MEDS: FOLIC ACID 1 MG TABLET PO SCH (08:56)
[2019-06-29] MEDS: DIVALPROEX SPRINKLE 125 MG CAP.SPRINK PO SCH ×3 (08:56→16:25)
[2019-06-29] MEDS: ASCORBIC ACID 500 MG TABLET PO SCH (08:56)
[2019-06-29] MEDS ORDERED: VANC1PIG IV (11:21)
[2019-06-29 11:47] VITALS: BP 105/61
[2019-06-29 14:16] LABS: HEPATITIS B SURFACE AB Reactive (.); HEPATITIS B SURFACE AG Negative (Negative)
[2019-06-29 15:54] VITALS: BP 112/60
== END 2019-06-29 17:44 | DRG 637 ==
LOC: ER 13:00 → TELE3 16:12
PROVIDERS: ADMIT Nurse Practitioner Acute Care; ATTEND Nurse Practitioner Acute Care
PROC: 5A1D70Z Performance of Urinary Filtration, Intermittent, Less than 6 Hours Per Day (ICD-10-PCS; principal; 2019-06-28)
PROC: 05HC33Z Insertion of Infusion Device into Left Basilic Vein, Percutaneous Approach (ICD-10-PCS; 2019-06-29)
DX: E11.621 Type 2 diabetes mellitus with foot ulcer (principal); G93.41 Metabolic encephalopathy; E43 Unspecified severe protein-calorie malnutrition; L03.115 Cellulitis of right lower limb; I69.351 Hemiplegia and hemiparesis following cerebral infarction affecting right dominant side; I12.0 Hypertensive chronic kidney disease with stage 5 chronic kidney disease or end stage renal disease; Z68.1 Body mass index [BMI] 19.9 or less, adult; L97.519 Non-pressure chronic ulcer of other part of right foot with unspecified severity; Z89.512 Acquired absence of left leg below knee; M62.579 Muscle wasting and atrophy, not elsewhere classified, unspecified ankle and foot; E11.51 Type 2 diabetes mellitus with diabetic peripheral angiopathy without gangrene; S90.811A Abrasion, right foot, initial encounter; X58.XXXA Exposure to other specified factors, initial encounter; Y92.129 Unspecified place in nursing home as the place of occurrence of the external cause; G47.00 Insomnia, unspecified; E11.22 Type 2 diabetes mellitus with diabetic chronic kidney disease; N18.6 End stage renal disease; Z99.2 Dependence on renal dialysis; Z88.1 Allergy status to other antibiotic agents; Z88.2 Allergy status to sulfonamides; J44.9 Chronic obstructive pulmonary disease, unspecified; K21.9 Gastro-esophageal reflux disease without esophagitis; R62.7 Adult failure to thrive; F20.9 Schizophrenia, unspecified; E03.9 Hypothyroidism, unspecified; M62.84 Sarcopenia; R32 Unspecified urinary incontinence; Z88.0 Allergy status to penicillin; F41.9 Anxiety disorder, unspecified; F32.9 Major depressive disorder, single episode, unspecified; E78.5 Hyperlipidemia, unspecified; D63.1 Anemia in chronic kidney disease; I25.10 Atherosclerotic heart disease of native coronary artery without angina pectoris; Z86.14 Personal history of Methicillin resistant Staphylococcus aureus infection
CPT/HCPCS: 36415; 71045; 73630; 83735; 84100; 84443; 85025; 85610; 85651; 86706; 87040; 87070; 87077; 87340; 90937; A4663; G0378; J1815; J3370; J7050; J7060